=== PATIENT | female | born 1990 | race African-American/Black ===

== ENCOUNTER 2018-09-08 07:52 | Emergency (ER) | payer SELFPAY ==
[~2018-09-08] VITALS: Ht 162.6 cm; Wt 49.9 kg
--- NOTE | 2018-09-08 08:30 | NUR ---
ED Nurse Note: Patient presents to ER due to left foot injury. Patient jumped over the fence, approximately 7' and landed 'wrong'. Deformity, swelling over the dorsal aspect of the left foot noted. C/O pain with guarding noted. Provided ice pack and elevated the affected leg. Patient able to wiggle left toes slightly, able to identify which toe is being touched and +2 dorsal pedis pulse palpated with cap refill < 3 sec.
[2018-09-08] MEDS ORDERED: Morphine Sulfate 4mg/ml Inj (IV USE ONLY) IVP ONE (08:45)
--- NOTE | 2018-09-08 09:01 | Diagnostic Imaging Report ---
Indication: Foot pain Comparison: None Findings: 3 views of the left foot were obtained. There is a abnormal lucency at the plantar aspect of the calcaneus at the tuberosity. Suspected acute nondisplaced fracture. CT is recommended for further evaluation. Findings discussed with Dr. Khan in the emergency Department. Remainder of the osseous structures appear normal IMPRESSION: Suspected acute calcaneus fracture. CT to follow
--- NOTE | 2018-09-08 09:12 | Emergency Room Report ---
History of Present Illness General Chief Complaint: Lower Extremity Injury Source: Patient Present Illness HPI Patient is 27-year-old female presented after increased left foot pain. Patient reports having a fall from gate approximately 7 feet. Patient stated that she attempted to climb the gait and subsequently fell and injured her foot. She reports having some pain to the left knee as well as her left hip. Allergies: Coded Allergies: No Known Allergies (Unverified , 09/08/18) Patient History Past Medical History: see triage record Last Menstrual Period: 08/02/18 Now: No Reviewed Nursing Documentation: PMH: Agreed; PSxH: Agreed Nursing Documentation-PMH Past Medical History: No Stated History Review of Systems All Other Systems: negative except mentioned in HPI Physical Exam Vital Signs Date Time Temp Pulse Resp B/P (MAP) Pulse Ox O2 Delivery O2 Flow Rate FiO2 09/08/18 08:01 98.8 115 20 131/86 95 Room Air Sp02 EP Interpretation: reviewed, normal General Appearance: normal inspection, well appearing, no apparent distress, alert, GCS 15 Head: atraumatic ENT: normal ENT inspection, hearing grossly normal, normal voice Neck: normal inspection, full range of motion, supple, no bony tend Respiratory: normal inspection, lungs clear, normal breath sounds, no respiratory distress, no retraction, no wheezing Cardiovascular #1: regular rate, rhythm, no edema Gastrointestinal: normal inspection, normal bowel sounds, non tender, soft, no guarding, no hernia Genitourinary: no CVA tenderness Musculoskeletal: back normal, swelling - decreased rom, swelling to dorsum of foot Neurologic: normal inspection, alert, responsive, speech normal Psychiatric: normal inspection, judgement/insight normal, mood/affect normal Skin: normal inspection, normal color, no rash Medical Decision Making Diagnostic Impression: Primary Impression: Calcaneal fracture ER Course Patient presented for left foot pain. Differential diagnosis included but was not limited to fracture, dislocation, plantar fascia rupture among others. Xray imaging of the foot read by radiology showed calcaneus fracture. CT imaging showed comminuted fracture without significant displacement. Patient was placed in a well padded posterior splint. She was advised elevation and nonweightbearing status. She was advised to follow up with orthopedics in 1-2 days for reevaluation and possible casting vs operative managment. Labs Test 09/08/18 08:43 White Blood Count 11.4 K/UL (4.8-10.8) Red Blood Count 4.92 M/UL (4.20-5.40) Hemoglobin 15.4 G/DL (12.0-16.0) Hematocrit 46.5 % (37.0-47.0) Mean Corpuscular Volume 95 FL (80-99) Mean Corpuscular Hemoglobin 31.2 PG (27.0-31.0) Mean Corpuscular Hemoglobin Concent 33.0 G/DL (32.0-36.0) Red Cell Distribution Width 11.4 % (11.6-14.8) Platelet Count 197 K/UL (150-450) Mean Platelet Volume 7.6 FL (6.5-10.1) Neutrophils (%) (Auto) 82.7 % (45.0-75.0) Lymphocytes (%) (Auto) 8.9 % (20.0-45.0) Monocytes (%) (Auto) 7.3 % (1.0-10.0) Eosinophils (%) (Auto) 0.1 % (0.0-3.0) Basophils (%) (Auto) 1.0 % (0.0-2.0) Prothrombin Time 10.7 SEC (9.30-11.50) Prothromb Time International Ratio 1.0 (0.9-1.1) Activated Partial Thromboplast Time 28 SEC (23-33) Sodium Level 139 MMOL/L (136-145) Potassium Level 4.3 MMOL/L (3.5-5.1) Chloride Level 101 MMOL/L (98-107) Carbon Dioxide Level 27 MMOL/L (21-32) Anion Gap 11 mmol/L (5-15) Blood Urea Nitrogen 7 mg/dL (7-18) Creatinine 0.9 MG/DL (0.55-1.30) Estimat Glomerular Filtration Rate > 60 mL/min (>60) Glucose Level 94 MG/DL (74-106) Calcium Level 9.5 MG/DL (8.5-10.1) Total Bilirubin 1.4 MG/DL (0.2-1.0) Direct Bilirubin 0.3 MG/DL (0.0-0.3) Aspartate Amino Transf (AST/SGOT) 24 U/L (15-37) Alanine Aminotransferase (ALT/SGPT) 25 U/L (12-78) Alkaline Phosphatase 75 U/L (46-116) Total Protein 8.9 G/DL (6.4-8.2) Albumin 4.5 G/DL (3.4-5.0) Globulin 4.4 g/dL Albumin/Globulin Ratio 1.0 (1.0-2.7) Human Chorionic Gonadotropin, Qual Negative (NEGATIVE) Last Vital Signs Date Time Temp Pulse Resp B/P (MAP) Pulse Ox O2 Delivery O2 Flow Rate FiO2 09/08/18 08:01 98.8 115 20 131/86 95 Room Air Status: improved Disposition: HOME, SELF-CARE Condition: Stable Scripts Ibuprofen* (MOTRIN*) 600 Mg Tablet 600 MG ORAL Q8H PRN for For Pain, #30 TAB 0 Refills Prov: Philipp Khan MD 09/08/18 Hydrocodone Bit/Acetaminophen 5-325* (NORCO 5-325*) 1 Each Tablet 1 TAB ORAL Q6H PRN for For Pain, #30 TAB 0 Refills Prov: Philipp Khan MD 09/08/18 Referrals: NOT CHOSEN [facility]/,REFERRING (PCP) Philipp Khan MD Sep 08, 2018 09:12
[2018-09-08 09:28] LABS: EOSINOPHILS % (AUTO) 0.1 % (0.0-3.0); HEMATOCRIT 46.5 % (37.0-47.0); HEMOGLOBIN 15.4 G/DL (12.0-16.0); LYMPHOCYTES % (AUTO) 8.9 % (20.0-45.0); MEAN CORPUSCULAR VOLUME 95 FL (80-99); MONOCYTES % (AUTO) 7.3 % (1.0-10.0); NEUTROPHILS % (AUTO) 82.7 % (45.0-75.0); PLATELET COUNT 197 K/UL (150-450); RED BLOOD COUNT 4.92 M/UL (4.20-5.40); RED CELL DISTRIBUTION WIDTH 11.4 % (11.6-14.8); WHITE BLOOD COUNT 11.4 K/UL (4.8-10.8)
[2018-09-08 09:37] LABS: ANION GAP 11 mmol/L (5-15); BLOOD UREA NITROGEN 7 mg/dL (7-18); CALCIUM 9.5 MG/DL (8.5-10.1); CARBON DIOXIDE 27 MMOL/L (21-32); CHLORIDE 101 MMOL/L (98-107); CREATININE 0.9 MG/DL (0.55-1.30); POTASSIUM 4.3 MMOL/L (3.5-5.1); SODIUM 139 MMOL/L (136-145)
--- NOTE | 2018-09-08 09:38 | NUR ---
ED Nurse Note: Patient returned from CT scan.
[2018-09-08 09:42] LABS: ALANINE AMINOTRANSFERASE 25 U/L (12-78); ALBUMIN 4.5 G/DL (3.4-5.0); ALKALINE PHOSPHATASE 75 U/L (46-116); ASPARTATE AMINO TRANSFERASE 24 U/L (15-37); BILIRUBIN,TOTAL 1.4 MG/DL (0.2-1.0)
[2018-09-08 09:55] LABS: BILIRUBIN,DIRECT 0.3 MG/DL (0.0-0.3)
--- NOTE | 2018-09-08 10:15 | Diagnostic Imaging Report ---
Indication: Acute left foot trauma. Abnormal x-ray Technique: Continuous helical imaging of the left knee was performed in the transaxial plane. Coronal 2-D reformatted images were also generated. Study obtained in a Siemens Sensation [address] total DLP: 337 mGycm CTD/vol: 0.15, 0.15, 15.26 mGy Comparison: None Findings: There is a severe but relatively nondisplaced comminuted fracture of the calcaneus with multiple fracture lines demonstrated. Starting anteriorly, there is a fracture oriented obliquely involving the anterior process of the calcaneus with the fracture line extending into the sinus Tarsi posteriorly and the calcaneocuboid joint anteriorly. The posterior margin of this fracture line extends further posterior medially into the posterior subtalar joint. There is a horizontally oriented fracture through the mid body of the calcaneus probably best seen on transaxial images (7-32) extending into the lateral surface of the calcaneus. Comminuted fractures along the superficial cortical and subcortical lateral calcaneal body noted. There is another fracture line involving the posterior medial aspect of the calcaneal body. This fracture involves the medial aspect of the calcaneal tuberosity and extends obliquely and superiorly to transect the posterior subtalar joint. Soft tissue swelling noted. IMPRESSION: Severe comminuted, nondisplaced fracture of the calcaneus as described above. The CT scanner at [facility] is accredited by the [employer] and the scans are performed using dose optimization techniques as appropriate to a performed exam including Automatic Exposure control.
--- NOTE | 2018-09-08 10:39 | NUR ---
ED Nurse Note: Patient sleeping in bed.
--- NOTE | 2018-09-08 11:17 | NUR ---
ED Nurse Note: eport given to SUMI Hickman. Patient resting in bed.
--- NOTE | 2018-09-08 11:17 | NUR ---
Cecil navarro in EDM - 09/08/18 at 1117 by CARLITA ED Nurse Note: Report given to SUMI Hickman. Patient resting in bed, waiting for splint.
[2018-09-08] MEDS ORDERED: IBUPROFEN600 MG ORAL (11:53)
[2018-09-08] MEDS ORDERED: NORCO 5-325 TA1 EACH ORAL (11:53)
[2018-09-08 12:02] VITALS: BP 127/87
--- NOTE | 2018-09-08 12:03 | NUR ---
ED Nurse Note: pt cleared to be d/c per ERMD, splint done by dental laboratory technician, CMS intact BLE, cap refill <3sec, iv d/c and dressing applied, pt returned demonstration successfully using crutches, pt discharge and aftercare instruction provided w/ prescription, pt education done via discussion and handout, pt advised to follow up with ortho specialist or return to ed if changes in condition, pt verbalized understanding and agrees with plan, vss, ambulatory w/ steady gait, left w/ all belongings, pt accompanied by boyfriend.
== END 2018-09-08 12:05 | disposition home or self-care (01) ==
LOC: EMR 08:41
DX: S92.002A Unspecified fracture of left calcaneus, initial encounter for closed fracture (principal); W17.89XA Other fall from one level to another, initial encounter; Y92.89 Other specified places as the place of occurrence of the external cause
CPT/HCPCS: 36415; 73630; 73700; 80053; 82248; 84703; 85025; 85610; 85730; 96374; 96375; 99284; J2270; J2405